=== PATIENT | female | born 1940 | race Caucasian/White ===

== ENCOUNTER 2019-01-31 12:33 | Emergency (ER) | payer MEDICARE, OTHER ==
[~2019-01-31] VITALS: Ht 165.1 cm; Wt 58.1 kg
[2019-01-31 13:59] VITALS: BP 156/70
== END 2019-01-31 14:03 | disposition home or self-care (01) ==
LOC: FSED 12:33
DX: R00.2 Palpitations (principal); I47.1 Supraventricular tachycardia
CPT/HCPCS: 80053; 82553; 84484; 85025; 93005; 99283

== ENCOUNTER 2020-12-04 09:24 | Emergency (ER) | payer MEDICARE ==
[~2020-12-04] VITALS: Ht 160 cm; Wt 64.4 kg
[2020-12-04] MEDS ORDERED: AZITHROMYCIN250 MG PO (09:52)
[2020-12-04] MEDS ORDERED: ONDANSETRON HCL 4 MG ORAL DISINTEGRATING TAB PO ONE (10:15)
== END 2020-12-04 10:27 | disposition home or self-care (01) ==
LOC: FSED 09:48
DX: R10.13 Epigastric pain (principal); R11.2 Nausea with vomiting, unspecified; R42 Dizziness and giddiness; J02.9 Acute pharyngitis, unspecified; F41.9 Anxiety disorder, unspecified
CPT/HCPCS: 81003; 93005; 99283; Q0162

== ENCOUNTER 2024-11-18 12:26 | Emergency (ER) | payer MEDICARE, OTHER ==
[~2024-11-18] VITALS: Ht 160 cm; Wt 63.0 kg
[~2024-11-18 12:26] MED LIST: AZITHROMYCIN250 MG PO
[2024-11-18] MEDS ORDERED: SODIUM CHLORIDE 0.9% 1000ML 1,000 ML ONE (14:17)
[2024-11-18] MEDS: SODIUM CHLORIDE 0.9% 1000ML 1,000 ML IV ONE (14:32)
[2024-11-18 15:42] VITALS: PULSE 70; RESP 16; TEMP 98.3
[2024-11-18 18:00] VITALS: BP 178/78; PULSE 82; RESP 16; TEMP 99; O2SAT 98
== END 2024-11-18 17:59 | disposition home or self-care (01) ==
LOC: FSED 13:45
DX: R42 Dizziness and giddiness (principal); R53.1 Weakness; I48.91 Unspecified atrial fibrillation; F41.9 Anxiety disorder, unspecified; R94.31 Abnormal electrocardiogram [ECG] [EKG]; Z87.19 Personal history of other diseases of the digestive system
CPT/HCPCS: 80053; 81003; 84484; 85025; 93005; 99283; J7030